=== PATIENT | female | born 1955 | race Caucasian/White ===

== ENCOUNTER 2018-02-27 14:35 | Outpatient (CLI) | payer OTHER | END 2018-02-27 14:36 | disposition home or self-care (01) | LOC: BICMAMMO 14:35 | PROVIDERS: ATTEND Internal Medicine Hematology & Oncology | DX: Z08 Encounter for follow-up examination after completed treatment for malignant neoplasm (principal); Z85.3 Personal history of malignant neoplasm of breast | CPT/HCPCS: 77066; G0279 ==

== ENCOUNTER 2019-03-04 09:37 | Outpatient (CLI) | payer OTHER ==
--- NOTE | 2019-03-04 10:06 | MMO ---
Bilateral MAMMO Bilat Diag [facility]. CLINICAL HISTORY: Patient is 63 years old and is seen for diagnostic exam. The patient has no family history of breast cancer. The patient has a history of right Ultrasound Guided Core Biopsy in January, - malignant. VIEWS: The views performed were: bilateral craniocaudal with tomosynthesis; bilateral mediolateral oblique with tomosynthesis; and bilateral mediolateral. FILMS COMPARED: The present examination has been compared to prior imaging studies performed at [facility] on 09/01/2015, 02/23/2016, 02/23/2017 and 02/27/2018. MAMMOGRAM FINDINGS: There are scattered fibroglandular densities. There are stable benign appearing calcifications seen in both breasts. There are no suspicious masses, suspicious calcifications, or new areas of architectural distortion. IMPRESSION: THERE IS NO MAMMOGRAPHIC EVIDENCE OF MALIGNANCY. A ROUTINE FOLLOW-UP MAMMOGRAM IN 1 YEAR IS RECOMMENDED. THE RESULTS OF THIS EXAM WERE SENT TO THE PATIENT. ACR BI-RADS Category 2 - Benign finding MAMMOGRAPHY NOTE: 1. A negative mammogram report should not delay a biopsy if a dominant of clinically suspicious mass is present. 2. Approximately 10% to 15% of breast cancers are not detected by mammography. 3. Adenosis and dense breasts may obscure an underlying neoplasm.
== END 2019-03-04 09:38 | disposition home or self-care (01) ==
LOC: BICMAMMO 09:37
PROVIDERS: ATTEND Internal Medicine Hematology & Oncology
DX: Z08 Encounter for follow-up examination after completed treatment for malignant neoplasm (principal); Z85.3 Personal history of malignant neoplasm of breast
CPT/HCPCS: 77066; G0279